=== PATIENT | male | born 1950 | race American Indian/Alaskan Native ===

== ENCOUNTER 2020-01-29 15:12 | Emergency (ER) | payer MEDICARE, MEDICAID ==
[~2020-01-29] VITALS: Ht 165.1 cm; Wt 64.0 kg
[2020-01-29 17:15] VITALS: BP 111/72
== END 2020-01-29 17:16 | disposition home or self-care (01) ==
LOC: ER 15:12
DX: T18.128A Food in esophagus causing other injury, initial encounter (principal); E78.00 Pure hypercholesterolemia, unspecified; E11.9 Type 2 diabetes mellitus without complications; I10 Essential (primary) hypertension; Z85.038 Personal history of other malignant neoplasm of large intestine; Z98.890 Other specified postprocedural states
CPT/HCPCS: 99281

== ENCOUNTER 2020-09-04 09:50 | Emergency (ER) | payer MEDICARE, MEDICAID ==
[~2020-09-04] VITALS: Ht 165.1 cm; Wt 61.0 kg
[~2020-09-04 09:50] MED LIST: AMLO5TAB88 MT; ASPI-1406 MT; ATOR80TA MT; CLOP75TA33 MT; ERGO500013 PO; GABA-529 MT; IMOD MT; INSU100I28 SQ; LINA5TAB MT; LISI30TA36 MT; METF-874 MT; NITR0.4T49 SL; PANT20TA17 MT; TOPUD MT
[2020-09-04 11:20] LABS: BASOPHILS % 0.7 % (0.0-2.0); EOSINOPHILS % 0.8 % (0.0-5.0); HEMATOCRIT. 34.1 % (42.0-52.0); HEMOGLOBIN. 11.3 g/dL (14.0-18.0); LYMPHOCYTES % 18.6 % (20.0-50.0); MEAN CORPUSCULAR HEMOGLOBIN 28.9 pg (28.0-32.0); MEAN CORPUSCULAR VOLUME 87.3 fL (80.0-94.0); MEAN PLATELET VOLUME 9.2 fl (7.4-10.4); MONOCYTES % 4.9 % (2.0-8.0); PLATELET 279 x1000/uL (130-400); RED BLOOD CELL COUNT 3.91 mill/uL (4.7-6.1)
[2020-09-04 11:25] LABS: CLARITY URINE CLEAR (CLEAR); COLOR URINE YELLOW (YELLOW); KETONES URINE TRACE (NEGATIVE); LEUKOCYTE ESTERASE URINE TRACE (NEGATIVE); NITRITE URINE NEGATIVE (NEGATIVE); OCCULT BLOOD URINE NEGATIVE (NEGATIVE); PH URINE 8.5 (4.5-8.0); PROTEIN URINE 3+ (NEGATIVE); UROBILINOGEN URINE 0.2 E.U./dL (0.2-1.0)
[2020-09-04 11:28] LABS: INR 1.1; PROTHROMBIN TIME 11.4 sec (9.6-11.0)
[2020-09-04 11:35] LABS: CHLORIDE 108 mEq/L (98-107)
[2020-09-04] MEDS ORDERED: IOHEXOL-300 100 ML BOTTLE ONE (14:17)
[2020-09-04] MEDS ORDERED: CEPH500C2 MT (14:36)
[2020-09-04 15:04] VITALS: BP 128/72
[2020-09-04] MEDS ORDERED: CEFTRIAXONE 1 G PREMIX 50 ML IV ONE (15:30)
== END 2020-09-04 16:10 | disposition home or self-care (01) ==
LOC: ER 09:50
DX: N39.0 Urinary tract infection, site not specified (principal); R10.9 Unspecified abdominal pain; E78.00 Pure hypercholesterolemia, unspecified; I11.0 Hypertensive heart disease with heart failure; I50.9 Heart failure, unspecified; E11.9 Type 2 diabetes mellitus without complications; Z79.4 Long term (current) use of insulin; Z79.82 Long term (current) use of aspirin; Z85.038 Personal history of other malignant neoplasm of large intestine; Z86.73 Personal history of transient ischemic attack (TIA), and cerebral infarction without residual deficits
CPT/HCPCS: 36415; 71045; 74177; 80053; 81003; 83690; 83880; 84484; 85025; 85610; 93005; 99285; Q9967

== ENCOUNTER 2020-09-23 17:54 | Inpatient (IN) | payer MEDICARE, MEDICAID ==
[~2020-09-23] VITALS: Ht 165.1 cm; Wt 64.1 kg
[~2020-09-23 17:54] MED LIST changes: +CEPH500C2 MT
[2020-09-23] MEDS ORDERED: RANITIDINE (18:06)
[2020-09-23] MEDS ORDERED: [UNRECOGNIZED DRUG - OTHER] (18:06)
[2020-09-23] MEDS ORDERED: DONE10TA43 PO (18:07)
[2020-09-23 23:20] LABS: BASOPHILS % 0.8 % (0.0-2.0); HEMATOCRIT. 37.4 % (42.0-52.0); HEMOGLOBIN. 12.6 g/dL (14.0-18.0); MEAN CORPUSCULAR HEMOGLOBIN 29.2 pg (28.0-32.0); MEAN CORPUSCULAR VOLUME 87.1 fL (80.0-94.0); MEAN PLATELET VOLUME 8.8 fl (7.4-10.4); MONOCYTES % 6.9 % (2.0-8.0); NEUTROPHILS % 63.3 % (40.0-76.0); PLATELET 286 x1000/uL (130-400)
[2020-09-23 23:28] LABS: CHLORIDE 109 mEq/L (98-107)
[2020-09-24] MEDS ORDERED: SODIUM CHLORIDE 0.9% 1,000 ML IV ONE (00:30)
[2020-09-24 00:55] LABS: CLARITY URINE CLEAR (CLEAR); COLOR URINE YELLOW (YELLOW); KETONES URINE TRACE (NEGATIVE); LEUKOCYTE ESTERASE URINE NEGATIVE (NEGATIVE); NITRITE URINE NEGATIVE (NEGATIVE); OCCULT BLOOD URINE NEGATIVE (NEGATIVE); PH URINE 5.5 (4.5-8.0); PROTEIN URINE 3+ (NEGATIVE); SPECIFIC GRAVITY URINE 1.024 (1.005-1.030); UROBILINOGEN URINE 0.2 E.U./dL (0.2-1.0)
[2020-09-24 08:00] VITALS: BP 151/56
[2020-09-24] MEDS ORDERED: ACETAMINOPHEN 325MG TABLET PO PRN (09:30)
[2020-09-24] MEDS ORDERED: ONDANSETRON HCL 4MG/2ML INJ IV PRN (09:30)
[2020-09-24 10:20] VITALS: BP 151/56
[2020-09-24] MEDS ORDERED: SODIUM CHLORIDE 0.9% 500 ML IV ONE (10:45)
[2020-09-24] MEDS: AMLODIPINE 10MG TABLET PO SCH (12:53)
[2020-09-24] MEDS: CLOPIDOGREL 75MG TABLET PO SCH (12:53)
[2020-09-24] MEDS: TAMSULOSIN HCL 0.4MG SR CAPSULE PO SCH (12:54)
[2020-09-24] MEDS: LISINOPRIL 20MG TABLET PO SCH (12:54)
[2020-09-24] MEDS: ASPIRIN 81MG EC TABLET PO SCH (12:54)
[2020-09-24] MEDS ORDERED: IBUP-2030 PO (14:30)
[2020-09-24 16:00] VITALS: BP 135/60
[2020-09-24 20:00] VITALS: BP 110/45
[2020-09-24] MEDS ORDERED: ATORVASTATIN CALCIUM 40MG TABLET PO SCH (21:00)
[2020-09-24] MEDS ORDERED: DEXTROSE 50% WATER 50ML SYRINGE IV PRN (21:30)
[2020-09-25] VITALS: BP 124/57
[2020-09-25 04:00] VITALS: BP 142/61
[2020-09-25] MEDS: INSULIN LISPRO 100 UNITS/ML SUBCUT SCH ×2 (06:59→12:56)
[2020-09-25] MEDS: BLOOD SUGAR DIAGNOSTIC STRIP TEST SCH ×2 (06:59→12:36)
[2020-09-25] MEDS: ASPIRIN 81MG EC TABLET PO SCH (10:12)
[2020-09-25] MEDS: CLOPIDOGREL 75MG TABLET PO SCH (10:13)
[2020-09-25] MEDS: AMLODIPINE 10MG TABLET PO SCH (10:13)
[2020-09-25] MEDS: LISINOPRIL 20MG TABLET PO SCH (10:13)
[2020-09-25] MEDS: TAMSULOSIN HCL 0.4MG SR CAPSULE PO SCH (10:13)
[2020-09-25 10:14] VITALS: BP 143/86
[2020-09-25 10:37] LABS: BASOPHILS % 0.7 % (0.0-2.0); EOSINOPHILS % 2.2 % (0.0-5.0); HEMATOCRIT. 29.8 % (42.0-52.0); HEMOGLOBIN. 10.5 g/dL (14.0-18.0); LYMPHOCYTES % 23.4 % (20.0-50.0); MEAN CORPUSCULAR VOLUME 85.1 fL (80.0-94.0); MEAN PLATELET VOLUME 8.9 fl (7.4-10.4); MONOCYTES % 6.9 % (2.0-8.0); NEUTROPHILS % 66.8 % (40.0-76.0); PLATELET 251 x1000/uL (130-400); RED CELL DISTRIBUTION WIDTH 13.9 % (11.6-14.6)
[2020-09-25] MEDS ORDERED: TAMS-11 PO (11:29)
[2020-09-25 11:59] VITALS: BP 96/42
[2020-09-25 13:39] VITALS: BP 145/66
[2020-09-25 15:54] VITALS: BP 114/45
== END 2020-09-25 16:30 | disposition home or self-care (01) | DRG 391 ==
LOC: ER 17:54 → 6WST 09-24 02:38 → ENRESERV 09-24 08:06
PROVIDERS: ADMIT Internal Medicine; ATTEND Internal Medicine
DX: K52.9 Noninfective gastroenteritis and colitis, unspecified (principal); N17.0 Acute kidney failure with tubular necrosis; I31.3 Pericardial effusion (noninflammatory); D64.9 Anemia, unspecified; E87.8 Other disorders of electrolyte and fluid balance, not elsewhere classified; E78.5 Hyperlipidemia, unspecified; N40.0 Benign prostatic hyperplasia without lower urinary tract symptoms; E78.00 Pure hypercholesterolemia, unspecified; E11.9 Type 2 diabetes mellitus without complications; I10 Essential (primary) hypertension; I35.8 Other nonrheumatic aortic valve disorders; N28.1 Cyst of kidney, acquired; Z79.899 Other long term (current) drug therapy; Z85.038 Personal history of other malignant neoplasm of large intestine; Z86.73 Personal history of transient ischemic attack (TIA), and cerebral infarction without residual deficits; Z79.82 Long term (current) use of aspirin; Z79.4 Long term (current) use of insulin; Z79.02 Long term (current) use of antithrombotics/antiplatelets
CPT/HCPCS: 36415; 74176; 80048; 80053; 81003; 82962; 83036; 83605; 84484; 85025; 93005; 99285; J1815; J7040

== ENCOUNTER 2021-08-07 12:15 | Inpatient (IN) | payer MEDICARE, MEDICAID ==
[~2021-08-07] VITALS: Ht 165.1 cm; Wt 66.7 kg
[~2021-08-07 12:15] MED LIST changes: +DONE10TA43 PO; +ERGO1250 PO; -ERGO500013 PO; +IBUP-2030 PO; +RANITIDINE; +TAMS-11 PO; +[UNRECOGNIZED DRUG - OTHER]
[2021-08-07 12:57] LABS: BASOPHILS % 0.7 % (0.0-2.0); EOSINOPHILS % 0.6 % (0.0-5.0); HEMOGLOBIN. 12.6 g/dL (14.0-18.0); MEAN CORPUSCULAR HEMOGLOBIN 29.7 pg (28.0-32.0); MEAN CORPUSCULAR VOLUME 89.7 fL (80.0-94.0); MEAN PLATELET VOLUME 8.1 fl (7.4-10.4); MONOCYTES % 6.3 % (2.0-8.0); NEUTROPHILS % 66.4 % (40.0-76.0); PLATELET 309 x1000/uL (130-400); RED BLOOD CELL COUNT 4.23 mill/uL (4.7-6.1); RED CELL DISTRIBUTION WIDTH 13.9 % (11.6-14.6)
[2021-08-07 13:03] LABS: CHLORIDE 111 mEq/L (98-107)
[2021-08-07] MEDS ORDERED: MAGNESIUM/ALUMINUM HYDROXIDE/SIMETHICONE 30ML UDC PO PRN (16:45)
[2021-08-07] MEDS ORDERED: ACETAMINOPHEN 325MG TABLET PO PRN ×2 (16:45)
[2021-08-07] MEDS ORDERED: DEXTROSE 50% WATER 50ML SYRINGE IV PRN (16:45)
[2021-08-07] MEDS ORDERED: ONDANSETRON HCL 4MG/2ML INJ IV PRN (16:45)
[2021-08-07] MEDS ORDERED: NITROGLYCERIN 0.4MG TABLET SL SL PRN (16:45)
[2021-08-07] MEDS ORDERED: IPRATROPIUM/ALBUTEROL 0.5-3(2.5)MG/3ML NEB NEB PRN (16:45)
[2021-08-07] MEDS ORDERED: DOCUSATE SODIUM 100MG CAPSULE PO PRN (16:45)
[2021-08-07] MEDS ORDERED: TRAMADOL 50MG TABLET PO PRN (16:45)
[2021-08-07] MEDS ORDERED: KETOROLAC 15MG/ML VIAL IV PRN (16:45)
[2021-08-07] MEDS ORDERED: ZOLPIDEM TARTRATE 5MG TABLET PO PRN (16:45)
[2021-08-07] MEDS ORDERED: GUAIFENESIN 200MG/10ML SUGAR FREE UDC PO PRN (16:45)
[2021-08-07 17:10] LABS: T4 FREE 0.89 ng/dL (0.76-1.46)
[2021-08-07 17:39] LABS: VITAMIN B12 SERUM 958 pg/mL (211-911)
[2021-08-07] MEDS ORDERED: NALOXONE HCL 0.4MG/ML VIAL IV PRN (18:30)
[2021-08-07 18:33] LABS: *AMPHETAMINES SCREEN URINE NEGATIVE (NEGATIVE)
[2021-08-07 18:34] LABS: *BARBITURATES SCREEN URINE NEGATIVE (NEGATIVE); *BENZODIAZEPINES SCREEN URINE NEGATIVE (NEGATIVE); *COCAINE SCREEN URINE NEGATIVE (NEGATIVE); METHADONE URINE SCREEN NEGATIVE (NEGATIVE); OPIATES URINE SCREEN NEGATIVE (NEGATIVE)
[2021-08-07 18:35] LABS: CANNABINOID URINE SCREEN NEGATIVE (NEGATIVE); PHENCYCLIDINE URINE SCREEN NEGATIVE (NEGATIVE)
[2021-08-07] MEDS: BLOOD SUGAR DIAGNOSTIC STRIP TEST SCH (20:51)
[2021-08-07] MEDS: INSULIN LISPRO 100 UNITS/ML SUBCUT SCH (20:51)
[2021-08-07] MEDS: METOPROLOL TARTRATE 25MG TABLET PO SCH (20:53)
[2021-08-07] MEDS: LISINOPRIL 20MG TABLET PO SCH (20:54)
[2021-08-07] MEDS: ENOXAPARIN 40MG/0.4ML SYR SUBCUT SCH (20:54)
[2021-08-07] MEDS: FAMOTIDINE 20MG TABLET PO SCH (20:54)
[2021-08-07 21:40] VITALS: BP 167/89
[2021-08-07 21:45] VITALS: BP 167/89
[2021-08-08] VITALS: BP 179/72
[2021-08-08] MEDS: CLONIDINE 0.1MG TABLET PO PRN ×2 (00:14→23:25)
[2021-08-08 01:19] LABS: CREATINE KINASE MB FRACTION 1.7 ng/mL (0.5-3.6)
[2021-08-08 04:00] VITALS: BP 151/64
[2021-08-08] MEDS: BLOOD SUGAR DIAGNOSTIC STRIP TEST SCH ×4 (07:26→20:52)
[2021-08-08] MEDS: INSULIN LISPRO 100 UNITS/ML SUBCUT SCH ×4 (07:26→20:52)
[2021-08-08 07:35] LABS: BASOPHILS % 0.7 % (0.0-2.0); EOSINOPHILS % 2.3 % (0.0-5.0); HEMATOCRIT. 35.9 % (42.0-52.0); HEMOGLOBIN. 11.9 g/dL (14.0-18.0); LYMPHOCYTES % 31.9 % (20.0-50.0); MEAN CORPUSCULAR VOLUME 90.2 fL (80.0-94.0); MEAN PLATELET VOLUME 8.5 fl (7.4-10.4); MONOCYTES % 7.1 % (2.0-8.0); PLATELET 280 x1000/uL (130-400); RED BLOOD CELL COUNT 3.98 mill/uL (4.7-6.1); RED CELL DISTRIBUTION WIDTH 13.7 % (11.6-14.6)
[2021-08-08 07:43] LABS: CHLORIDE 112 mEq/L (98-107)
[2021-08-08 07:53] LABS: PHOSPHORUS 3.8 mg/dL (2.5-4.9)
[2021-08-08 07:54] LABS: CREATINE KINASE MB FRACTION 1.4 ng/mL (0.5-3.6)
[2021-08-08 08:25] VITALS: BP 137/74
[2021-08-08] MEDS: ZINC SULFATE 220 MG ( 50 ) CAPSULE PO SCH (08:38)
[2021-08-08] MEDS: LISINOPRIL 20MG TABLET PO SCH ×2 (08:39→20:45)
[2021-08-08] MEDS: ASPIRIN 81MG EC TABLET PO SCH (08:39)
[2021-08-08] MEDS: CHOLECALCIFEROL (D3) 1000 UNIT TABLET PO SCH (08:39)
[2021-08-08] MEDS: METOPROLOL TARTRATE 25MG TABLET PO SCH ×2 (08:40→20:45)
[2021-08-08] MEDS: CLOPIDOGREL 75MG TABLET PO SCH (08:40)
[2021-08-08 11:47] VITALS: BP 155/57
[2021-08-08 15:35] VITALS: BP 157/63
[2021-08-08 20:00] VITALS: BP 173/71
[2021-08-08] MEDS: FAMOTIDINE 20MG TABLET PO SCH (20:45)
[2021-08-08] MEDS: ENOXAPARIN 40MG/0.4ML SYR SUBCUT SCH (20:53)
[2021-08-09] VITALS: BP 179/64
[2021-08-09 04:00] VITALS: BP 123/53
[2021-08-09] MEDS: INSULIN LISPRO 100 UNITS/ML SUBCUT SCH ×4 (06:16→21:28)
[2021-08-09] MEDS: BLOOD SUGAR DIAGNOSTIC STRIP TEST SCH ×4 (06:16→21:28)
[2021-08-09 08:00] VITALS: BP 140/55
[2021-08-09] MEDS: CLOPIDOGREL 75MG TABLET PO SCH (08:28)
[2021-08-09] MEDS: ZINC SULFATE 220 MG ( 50 ) CAPSULE PO SCH (08:28)
[2021-08-09] MEDS: METOPROLOL TARTRATE 25MG TABLET PO SCH ×2 (08:28→21:23)
[2021-08-09] MEDS: LISINOPRIL 20MG TABLET PO SCH ×2 (08:29→21:24)
[2021-08-09] MEDS: CHOLECALCIFEROL (D3) 1000 UNIT TABLET PO SCH (08:29)
[2021-08-09] MEDS: ASPIRIN 81MG EC TABLET PO SCH (08:29)
[2021-08-09 11:29] VITALS: BP 151/50
[2021-08-09 15:20] VITALS: BP 141/55
[2021-08-09 20:00] VITALS: BP 167/65
[2021-08-09] MEDS: FAMOTIDINE 20MG TABLET PO SCH (21:23)
[2021-08-09] MEDS: ENOXAPARIN 40MG/0.4ML SYR SUBCUT SCH (21:28)
[2021-08-10] VITALS: BP 138/63
[2021-08-10 04:00] VITALS: BP 157/67
[2021-08-10] MEDS: INSULIN LISPRO 100 UNITS/ML SUBCUT SCH (06:20)
[2021-08-10] MEDS: BLOOD SUGAR DIAGNOSTIC STRIP TEST SCH (06:20)
[2021-08-10 07:56] VITALS: BP 105/66
[2021-08-10] MEDS: ZINC SULFATE 220 MG ( 50 ) CAPSULE PO SCH (08:07)
[2021-08-10] MEDS: LISINOPRIL 20MG TABLET PO SCH (08:07)
[2021-08-10] MEDS: ASPIRIN 81MG EC TABLET PO SCH (08:08)
[2021-08-10] MEDS: METOPROLOL TARTRATE 25MG TABLET PO SCH (08:08)
[2021-08-10] MEDS: CHOLECALCIFEROL (D3) 1000 UNIT TABLET PO SCH (08:08)
[2021-08-10] MEDS: CLOPIDOGREL 75MG TABLET PO SCH (08:08)
== END 2021-08-10 10:50 | disposition home or self-care (01) | DRG 205 ==
LOC: ER 12:15 → MICUSO 16:09 → EDBEDREQ 16:40 → 8WST 20:33
PROVIDERS: ADMIT Internal Medicine; ATTEND Internal Medicine
DX: M94.0 Chondrocostal junction syndrome [Tietze] (principal); I50.33 Acute on chronic diastolic (congestive) heart failure; I16.1 Hypertensive emergency; E44.1 Mild protein-calorie malnutrition; I11.0 Hypertensive heart disease with heart failure; D63.8 Anemia in other chronic diseases classified elsewhere; E78.00 Pure hypercholesterolemia, unspecified; E11.9 Type 2 diabetes mellitus without complications; N40.0 Benign prostatic hyperplasia without lower urinary tract symptoms; I25.10 Atherosclerotic heart disease of native coronary artery without angina pectoris; E78.5 Hyperlipidemia, unspecified; Z79.4 Long term (current) use of insulin; Z86.73 Personal history of transient ischemic attack (TIA), and cerebral infarction without residual deficits; Z79.2 Long term (current) use of antibiotics; Z79.899 Other long term (current) drug therapy; Z79.1 Long term (current) use of non-steroidal anti-inflammatories (NSAID); Z68.24 Body mass index [BMI] 24.0-24.9, adult
CPT/HCPCS: 36415; 71045; 80053; 80061; 80305; 82550; 82553; 82607; 82962; 83036; 83735; 83880; 84100; 84439; 84443; 84484; 85025; 93005; 93306; 93970; 99285; J1650; J1815